=== PATIENT | male | born 1985 | race Caucasian/White ===

== ENCOUNTER 2021-06-27 12:13 | Observation (INO) ==
[2021-06-27] MEDS ORDERED: Naloxone 0.4 MG/ML INJ IVP PRN ×2 (14:19→17:06)
[2021-06-27] MEDS ORDERED: Ondansetron 4 MG/2 ML VIAL IVP PRN ×2 (14:25→17:06)
[2021-06-27] MEDS ORDERED: Melatonin 3 MG TABLET PO PRN (14:25)
[2021-06-27] MEDS ORDERED: Ringers Solution, Lactated 1,000 ML IVC SCH ×2 (14:30→20:00)
[2021-06-27] MEDS ORDERED: Morphine Sulfate 2 MG/ML SYRINGE IVP ONE (14:44)
[2021-06-27] MEDS ORDERED: *HR* FentaNYL (PF) 100 MCG/2 ML VIAL ONE (15:38)
[2021-06-27] MEDS ORDERED: *HR* Propofol 200 MG/20 ML VIAL IVP ONE (15:39)
[2021-06-27] MEDS ORDERED: Lidocaine -MPF 2% 2 ML VIAL ONE (15:39)
[2021-06-27] MEDS ORDERED: *HR* Midazolam HCl 2 MG/2 ML VIAL ONE (15:39)
[2021-06-27] MEDS ORDERED: Ondansetron 4 MG/2 ML VIAL ONE (15:40)
[2021-06-27] MEDS ORDERED: *HR* FentaNYL (PF) 100 MCG/2 ML VIAL IVP PRN (15:43)
[2021-06-27 17:00] VITALS: O2SAT 98
[2021-06-27] MEDS ORDERED: *HR* HYDROcodone/Acet 5/325 mg TABLET PO PRN (17:06)
[2021-06-27] MEDS ORDERED: *HR* Heparin 5,000 UNIT/ML VIAL SQ SCH (18:00)
[2021-06-27 18:22] VITALS: TEMP 98
[2021-06-27] MEDS ORDERED: Ringers Solution, Lactated 1,000 ML ONE (18:47)
[2021-06-27 19:44] VITALS: BP 108/70; PULSE 122
[2021-06-27] MEDS ORDERED: Ketorolac 30 MG/ML VIAL IVP ONE (19:46)
[2021-06-27] MEDS ORDERED: *HR* LORazepam 1 MG TABLET PO PRN (19:50)
== END 2021-06-27 22:50 | disposition left against medical advice (07) ==
LOC: 3BNU
PROVIDERS: ADMIT Internal Medicine; ATTEND Internal Medicine